=== PATIENT | female | born 1950 | race Caucasian/White ===

== ENCOUNTER 2019-02-11 06:25 | Day surgery (SDC) | payer OTHER ==
[~2019-02-11 06:25] MED LIST: AMPICILLIN TRI500 MG PO; CIPRO500 MG PO; FLAGYL500MG PO; FLUCONAZOLE200 MG PO; INTESTINEX1 CAP PO
== END 2019-02-11 11:40 | disposition home or self-care (01) ==
LOC: CIR.AMB 06:25
DX: K57.20 Diverticulitis of large intestine with perforation and abscess without bleeding (principal); K64.8 Other hemorrhoids

== ENCOUNTER 2019-02-28 08:46 | Outpatient (CLI) | payer OTHER | END 2019-02-28 08:58 | disposition home or self-care (01) | LOC: LAB 08:46 | DX: K57.20 Diverticulitis of large intestine with perforation and abscess without bleeding (principal); Z01.818 Encounter for other preprocedural examination; Z01.812 Encounter for preprocedural laboratory examination ==

== ENCOUNTER 2019-03-02 13:17 | Inpatient (IN) | payer OTHER ==
[~2019-03-02] VITALS: Ht 165.1 cm; Wt 80.7 kg
== END 2019-03-09 11:03 | disposition home or self-care (01) | DRG 329 ==
LOC: O/R 03-06 09:24 → SURH 03-06 09:24
PROVIDERS: ADMIT Colon & Rectal Surgery
PROC: 0DJD8ZZ Inspection of Lower Intestinal Tract, Via Natural or Artificial Opening Endoscopic (ICD-10-PCS; 2019-03-06)
PROC: 0T9B70Z Drainage of Bladder with Drainage Device, Via Natural or Artificial Opening (ICD-10-PCS; 2019-03-06)
PROC: 0DTN4ZZ Resection of Sigmoid Colon, Percutaneous Endoscopic Approach (ICD-10-PCS; principal; 2019-03-06 12:15)
DX: K57.20 Diverticulitis of large intestine with perforation and abscess without bleeding (principal); K65.1 Peritoneal abscess; K56.51 Intestinal adhesions [bands], with partial obstruction; N39.0 Urinary tract infection, site not specified; A04.72 Enterocolitis due to Clostridium difficile, not specified as recurrent; K63.89 Other specified diseases of intestine; E87.6 Hypokalemia

== ENCOUNTER → 2019-03-02 | Outpatient (CLI) | payer OTHER | END | disposition home or self-care (01) | LOC: EKG 11:22 | DX: K57.20 Diverticulitis of large intestine with perforation and abscess without bleeding (principal); Z01.818 Encounter for other preprocedural examination; Z01.812 Encounter for preprocedural laboratory examination; Z01.810 Encounter for preprocedural cardiovascular examination ==

== ENCOUNTER 2020-08-03 07:40 | Day surgery (SDC) | payer OTHER | END 2020-08-03 11:33 | disposition home or self-care (01) | LOC: AMB-ENDOS 07:40 | PROVIDERS: ATTEND Colon & Rectal Surgery | DX: K63.5 Polyp of colon (principal); Z12.11 Encounter for screening for malignant neoplasm of colon; Z20.828 Contact with and (suspected) exposure to other viral communicable diseases ==

== ENCOUNTER 2024-12-16 05:45 | Day surgery (SDC) | payer OTHER ==
[2024-12-16] MEDS ORDERED: MIDAZOLAM HCL 2 MG/2 ML VIAL IV ONE (09:45)
[2024-12-16] MEDS ORDERED: DIPHENHYDRAMINE HCL 50 MG/ML VIAL 1ML IV ONE (09:45)
[2024-12-16] MEDS ORDERED: fentaNYL CITRATE 50 MCG/ML AMPUL IV PUSH ONE (09:45)
[2024-12-16] MEDS ORDERED: ONDANSETRON HCL 2 MG/ML VIAL IV ONE (09:45)
== END 2024-12-16 11:10 | disposition home or self-care (01) ==
LOC: AMB-ENDOS 05:45
PROVIDERS: ATTEND Colon & Rectal Surgery
DX: R19.4 Change in bowel habit (principal); Z12.11 Encounter for screening for malignant neoplasm of colon